=== PATIENT | female | born 1975 | race Hispanic/Latino ===

== ENCOUNTER 2020-08-01 13:30 | Inpatient (IN) | payer BC ==
[~2020-08-01] VITALS: Ht 157.5 cm; Wt 94.9 kg
[2020-08-01] MEDS ORDERED: LABETALOL HCL 5 MG/ML 20ML VIAL IV STA (13:59)
[2020-08-01 14:13] LABS: BASOPHILS # (AUTO) 0.1 (0.0-0.1); BASOPHILS % 0.8 % (0.0-1.0); EOSINOPHILS # (AUTO) 0.6 (0.0-0.4); HEMATOCRIT 42.3 % (34.2-44.1); HEMOGLOBIN 14.3 g/dL (12.0-16.0); LYMPHOCYTES # (AUTO) 2.6 (1.0-3.2); LYMPHOCYTES % 24.1 % (18.0-39.1); MEAN CORPUSCULAR HEMOGLOBIN 30.5 pg (28-32); MEAN CORPUSCULAR HGB CONC 33.8 g/dL (31-35); MEAN CORPUSCULAR VOLUME 90.2 fL (81-99); MONOCYTES # (AUTO) 0.7 (0.2-0.8); MONOCYTES % 6.6 % (4.4-11.3); NEUTROPHILS # (AUTO) 6.9 (2.1-6.9); NEUTROPHILS % 63.1 % (38.7-80.0); PLATELET COUNT 279 x10e3/uL (140-360); RED BLOOD COUNT 4.69 x10e6/uL (3.6-5.1); RED CELL DISTRIBUTION WIDTH 12.9 % (11.7-14.4)
[2020-08-01] MEDS ORDERED: SODIUM CHLORIDE 0.9% 1000ML 1,000 ML ONE (14:18)
[2020-08-01] MEDS ORDERED: MORPHINE SULFATE INJ 4 MG/ML INJ 1ML ONE (14:18)
[2020-08-01] MEDS ORDERED: ONDANSETRON HCL INJ 2MG/ML 2ML 2 MG/ML VIAL ONE (14:18)
[2020-08-01] MEDS ORDERED: SODIUM CHLORIDE 0.9% 1000ML 1,000 ML IV STA (14:26)
[2020-08-01] MEDS ORDERED: ONDANSETRON HCL INJ 2MG/ML 2ML 2 MG/ML VIAL IV STA (14:26)
[2020-08-01] MEDS ORDERED: MORPHINE SULFATE 2 MG/ML SYR 1ML IV STA (14:26)
[2020-08-01 14:27] LABS: INR 0.94
[2020-08-01 14:28] LABS: PARTIAL THROMBOPLASTIN TIME 23.5 seconds (23.8-35.5)
[2020-08-01 14:32] LABS: ALANINE AMINOTRANSFERASE 56 IU/L (0-55); ALKALINE PHOSPHATASE 89 IU/L (40-150); ANION GAP 13.5 mmol/L (8-16); BLOOD UREA NITROGEN 12 mg/dL (7-26); BUN/CREATININE RATIO 15 (6-25); CALCIUM 9.1 mg/dL (8.4-10.2); CARBON DIOXIDE 26 mmol/L (22-29); CHLORIDE 103 mmol/L (98-107); CREATINE KINASE 72 IU/L (29-168); CREATININE, SERUM 0.79 mg/dL (0.57-1.11); EST GLOMERULAR FILTRATION RATE > 60 ML/MIN (60-); GLUCOSE 158 mg/dL (74-118); POTASSIUM 3.5 mmol/L (3.5-5.1); SODIUM 139 mmol/L (136-145)
[2020-08-01 14:33] LABS: AMYLASE 52 U/L (25-125); LIPASE 20 U/L (8-78)
[2020-08-01 15:24] LABS: AMPHETAMINES SCREEN,URINE NEGATIVE (NEGATIVE); BENZODIAZEPINES SCREEN,URINE NEGATIVE (NEGATIVE); PHENCYCLIDINE SCREEN,URINE NEGATIVE (NEGATIVE)
[2020-08-01] MEDS ORDERED: SODIUM CHLORIDE 0.9% 50ML 50 ML ONE (15:25)
[2020-08-01] MEDS ORDERED: IOPAMIDOL 370 MG/ML 200 ML INFUS..BTL INJ ONE (15:26)
[2020-08-01] MEDS: PIPER-TAZ 3.375 GM 50 ML IV SCH ×2 (16:28→17:43)
[2020-08-01] MEDS ORDERED: MORPHINE SULFATE 2 MG/ML SYR 1ML IV PRN (16:45)
[2020-08-01] MEDS ORDERED: MORPHINE SULFATE INJ 4 MG/ML INJ 1ML IV PRN (17:00)
[2020-08-01 17:41] VITALS: BP 154/93
[2020-08-01] MEDS: D5.45%NS/KCL 20MEQ 1,000 ML IV SCH (17:46)
[2020-08-01 18:07] VITALS: BP 154/93
[2020-08-01] MEDS ORDERED: HYDRALAZINE HCL 20 MG/ML VIAL IV PRN (18:15)
[2020-08-01] MEDS ORDERED: POLYETHYLENE GLYCOL 3350 17 GM PACK PO PRN (18:15)
[2020-08-01 20:00] VITALS: BP 153/96
[2020-08-01 20:31] LABS: CREATINE KINASE MB 0.8 ng/mL (0-5.0)
[2020-08-01 21:00] VITALS: BP 153/96
[2020-08-01] MEDS ORDERED: TEMAZEPAM 15 MG CAP PO PRN (21:00)
[2020-08-01] MEDS: DICYCLOMINE HCL 10 MG CAP PO SCH (21:27)
[2020-08-01] MEDS: MORPHINE SULFATE 2 MG/ML SYR 1ML IV PRN (21:29)
[2020-08-01] MEDS ORDERED: ADVIL200 M1 PO (21:47)
[2020-08-02] VITALS (7 sets, daily range): BP systolic 116–143; BP diastolic 77–92
[2020-08-02] MEDS: PIPER-TAZ 3.375 GM 50 ML IV SCH ×5 (00:28→23:53)
[2020-08-02] MEDS: D5.45%NS/KCL 20MEQ 1,000 ML IV SCH ×2 (00:28→08:39)
[2020-08-02] MEDS: MORPHINE SULFATE 2 MG/ML SYR 1ML IV PRN ×4 (02:22→19:59)
[2020-08-02 06:09] LABS: BASOPHILS # (AUTO) 0.1 (0.0-0.1); EOSINOPHILS # (AUTO) 0.6 (0.0-0.4); HEMOGLOBIN 12.6 g/dL (12.0-16.0); LYMPHOCYTES # (AUTO) 2.5 (1.0-3.2); LYMPHOCYTES % 30.8 % (18.0-39.1); MEAN CORPUSCULAR HEMOGLOBIN 30.5 pg (28-32); MEAN CORPUSCULAR HGB CONC 33.2 g/dL (31-35); MONOCYTES # (AUTO) 0.7 (0.2-0.8); MONOCYTES % 8.5 % (4.4-11.3); NEUTROPHILS # (AUTO) 4.3 (2.1-6.9); NEUTROPHILS % 52.3 % (38.7-80.0); PLATELET COUNT 234 x10e3/uL (140-360); RED BLOOD COUNT 4.13 x10e6/uL (3.6-5.1)
[2020-08-02 06:43] LABS: ALANINE AMINOTRANSFERASE 49 IU/L (0-55); ALBUMIN 3.3 g/dL (3.5-5.0); ALBUMIN/GLOBULIN RATIO 0.9 (0.8-2.0); ALKALINE PHOSPHATASE 73 IU/L (40-150); ANION GAP 10.8 mmol/L (8-16); BLOOD UREA NITROGEN 7 mg/dL (7-26); BUN/CREATININE RATIO 9 (6-25); CALCIUM 8.1 mg/dL (8.4-10.2); CARBON DIOXIDE 26 mmol/L (22-29); CHLORIDE 104 mmol/L (98-107); CREATINE KINASE 51 IU/L (29-168); CREATININE, SERUM 0.76 mg/dL (0.57-1.11); EST GLOMERULAR FILTRATION RATE > 60 ML/MIN (60-); GLUCOSE 151 mg/dL (74-118); POTASSIUM 3.8 mmol/L (3.5-5.1); SODIUM 137 mmol/L (136-145)
[2020-08-02 07:15] LABS: CHOL/HDL RATIO 3.4 (3.0-3.6); MAGNESIUM 1.9 MG/DL (1.3-2.1); PHOSPHORUS 3.5 MG/DL (2.3-4.7)
[2020-08-02 07:35] LABS: THYROID STIMULATING HORMONE 2.841 uIU/mL (0.350-4.940)
[2020-08-02] MEDS: DICYCLOMINE HCL 10 MG CAP PO SCH ×3 (08:33→22:46)
[2020-08-02] MEDS: DOCUSATE SODIUM 100 MG CAP PO SCH ×2 (08:33→17:22)
[2020-08-02] MEDS ORDERED: PANTOPRAZOLE 40 MG 10ML VIAL IV SCH (09:00)
[2020-08-02] MEDS: ONDANSETRON HCL INJ 2MG/ML 2ML 2 MG/ML VIAL IV PRN ×2 (11:11→22:46)
[2020-08-02 13:53] LABS: BILIRUBIN,URINE NEGATIVE (NEGATIVE); CLARITY,URINE CLEAR (CLEAR); COLOR,URINE YELLOW (YELLOW); EPITHELIAL CELLS,URINE RARE /LPF; KETONES,URINE NEGATIVE (NEGATIVE); LEUKOCYTE ESTERASE ,URINE NEGATIVE (NEGATIVE); NITRITE,URINE NEGATIVE (NEGATIVE); PROTEIN,URINE DIPSTICK NEGATIVE (NEGATIVE); RBC,URINE 0-5 /HPF (0-5); URINE UROBILINOGEN 0.2 mg/dL (0.2 - 1); WBC,URINE (MAN) 0-5 /HPF (0-5)
[2020-08-02] MEDS: ACETAMINOPHEN 325 MG TAB PO PRN ×2 (17:26→22:52)
[2020-08-02] MEDS ORDERED: ACETAMIN/BUTALBITAL/CAFFEINE TAB PO PRN (17:45)
[2020-08-03] VITALS (8 sets, daily range): BP systolic 108–131; BP diastolic 65–89
[2020-08-03] MEDS: PANTOPRAZOLE 40 MG 10ML VIAL IV SCH ×2 (02:09→13:56)
[2020-08-03] MEDS: MORPHINE SULFATE 2 MG/ML SYR 1ML IV PRN ×3 (02:36→15:37)
[2020-08-03 05:26] LABS: BASOPHILS # (AUTO) 0.1 (0.0-0.1); BASOPHILS % 1.2 % (0.0-1.0); EOSINOPHILS # (AUTO) 0.7 (0.0-0.4); EOSINOPHILS % 12.3 % (0.0-6.0); HEMATOCRIT 40.8 % (34.2-44.1); HEMOGLOBIN 13.6 g/dL (12.0-16.0); LYMPHOCYTES # (AUTO) 2.2 (1.0-3.2); LYMPHOCYTES % 38.2 % (18.0-39.1); MEAN CORPUSCULAR HEMOGLOBIN 30.9 pg (28-32); MEAN CORPUSCULAR HGB CONC 33.3 g/dL (31-35); MEAN CORPUSCULAR VOLUME 92.7 fL (81-99); MONOCYTES # (AUTO) 0.6 (0.2-0.8); MONOCYTES % 9.6 % (4.4-11.3); NEUTROPHILS # (AUTO) 2.2 (2.1-6.9); NEUTROPHILS % 38.2 % (38.7-80.0); PLATELET COUNT 237 x10e3/uL (140-360); RED CELL DISTRIBUTION WIDTH 12.6 % (11.7-14.4)
[2020-08-03 05:56] LABS: BLOOD UREA NITROGEN 7 mg/dL (7-26); BUN/CREATININE RATIO 9 (6-25); CALCIUM 8.5 mg/dL (8.4-10.2); CARBON DIOXIDE 27 mmol/L (22-29); CHLORIDE 103 mmol/L (98-107); CREATININE, SERUM 0.78 mg/dL (0.57-1.11); EST GLOMERULAR FILTRATION RATE > 60 ML/MIN (60-); GLUCOSE 123 mg/dL (74-118); SODIUM 138 mmol/L (136-145)
[2020-08-03] MEDS: PIPER-TAZ 3.375 GM 50 ML IV SCH ×3 (06:20→18:07)
[2020-08-03] MEDS: DICYCLOMINE HCL 10 MG CAP PO SCH ×3 (09:11→21:29)
[2020-08-03] MEDS: DOCUSATE SODIUM 100 MG CAP PO SCH ×2 (09:11→16:51)
[2020-08-03] MEDS: ONDANSETRON HCL INJ 2MG/ML 2ML 2 MG/ML VIAL IV PRN ×2 (09:12→15:38)
[2020-08-03] MEDS ORDERED: IBUPROFEN 400 MG PO PRN (11:15)
[2020-08-03] MEDS ORDERED: IBUPROFEN 400 MG TAB PO PRN ×2 (11:30)
[2020-08-03] MEDS: METRONIDAZOLE 500MG/NS 100ML 100 ML IV SCH ×3 (15:38→21:29)
[2020-08-03] MEDS: ACETAMINOPHEN 325 MG TAB PO PRN (22:26)
[2020-08-03] MEDS ORDERED: SODIUM CHLORIDE 0.9% 250ML 250 ML ONE (23:52)
[2020-08-04] VITALS: BP 114/75
[2020-08-04] MEDS: PIPER-TAZ 3.375 GM 50 ML IV SCH ×4 (00:16→18:01)
[2020-08-04] MEDS: MORPHINE SULFATE 2 MG/ML SYR 1ML IV PRN ×2 (00:36→09:30)
[2020-08-04] MEDS: PANTOPRAZOLE 40 MG 10ML VIAL IV SCH ×2 (01:29→13:35)
[2020-08-04] MEDS: METRONIDAZOLE 500MG/NS 100ML 100 ML IV SCH ×5 (01:29→17:23)
[2020-08-04 04:00] VITALS: BP 127/78
[2020-08-04 04:58] LABS: BASOPHILS # (AUTO) 0.1 (0.0-0.1); EOSINOPHILS # (AUTO) 0.7 (0.0-0.4); EOSINOPHILS % 12.1 % (0.0-6.0); HEMATOCRIT 40.6 % (34.2-44.1); HEMOGLOBIN 13.6 g/dL (12.0-16.0); LYMPHOCYTES # (AUTO) 2.4 (1.0-3.2); LYMPHOCYTES % 40.6 % (18.0-39.1); MEAN CORPUSCULAR HEMOGLOBIN 31.3 pg (28-32); MEAN CORPUSCULAR HGB CONC 33.5 g/dL (31-35); MEAN CORPUSCULAR VOLUME 93.3 fL (81-99); MONOCYTES # (AUTO) 0.6 (0.2-0.8); MONOCYTES % 9.2 % (4.4-11.3); NEUTROPHILS # (AUTO) 2.2 (2.1-6.9); NEUTROPHILS % 36.9 % (38.7-80.0); PLATELET COUNT 241 x10e3/uL (140-360); RED BLOOD COUNT 4.35 x10e6/uL (3.6-5.1); RED CELL DISTRIBUTION WIDTH 12.4 % (11.7-14.4)
[2020-08-04 05:21] LABS: ANION GAP 11.1 mmol/L (8-16); BLOOD UREA NITROGEN 8 mg/dL (7-26); BUN/CREATININE RATIO 8 (6-25); CALCIUM 8.6 mg/dL (8.4-10.2); CARBON DIOXIDE 28 mmol/L (22-29); CHLORIDE 102 mmol/L (98-107); CREATININE, SERUM 0.96 mg/dL (0.57-1.11); EST GLOMERULAR FILTRATION RATE > 60 ML/MIN (60-); GLUCOSE 109 mg/dL (74-118); MAGNESIUM 1.9 MG/DL (1.3-2.1); PHOSPHORUS 4.4 MG/DL (2.3-4.7); POTASSIUM 4.1 mmol/L (3.5-5.1); SODIUM 137 mmol/L (136-145)
[2020-08-04 08:31] VITALS: BP 131/73
[2020-08-04 08:43] VITALS: BP 131/73
[2020-08-04] MEDS: DOCUSATE SODIUM 100 MG CAP PO SCH ×2 (09:10→16:42)
[2020-08-04] MEDS: DICYCLOMINE HCL 10 MG CAP PO SCH ×2 (09:10→14:48)
[2020-08-04 12:16] VITALS: BP 133/85
[2020-08-04] MEDS ORDERED: HYDROCODONE/APAP 5MG-325MG TAB PO PRN (16:00)
[2020-08-04] MEDS ORDERED: TRAMADOL HCL 50 MG TAB PO PRN (16:00)
[2020-08-04] MEDS ORDERED: ONDANSETRON HCL 4 MG ORAL DISINTEGRATING TAB PO PRN (16:00)
[2020-08-04 16:30] VITALS: BP 125/86
[2020-08-04] MEDS ORDERED: ACETAMINOPHEN325 M1 PO (17:05)
[2020-08-04] MEDS ORDERED: ULTRAM 50MG50 MG PO (17:05)
[2020-08-04] MEDS ORDERED: DICYCLOMINE HCL10 MG PO (17:05)
== END 2020-08-04 18:25 | disposition home or self-care (01) | DRG 392 ==
LOC: ER 13:48 → ERHOLD 16:23 → UNDOADMIN 16:23 → ERHOLD 16:48 → MED/SURG 17:33
PROVIDERS: ADMIT Internal Medicine; ATTEND Internal Medicine
DX: K57.30 Diverticulosis of large intestine without perforation or abscess without bleeding (principal); I16.9 Hypertensive crisis, unspecified; N39.0 Urinary tract infection, site not specified; K76.0 Fatty (change of) liver, not elsewhere classified; E87.6 Hypokalemia; E66.9 Obesity, unspecified; Z68.32 Body mass index [BMI] 32.0-32.9, adult; Z20.828 Contact with and (suspected) exposure to other viral communicable diseases
CPT/HCPCS: 36415; 71045; 74177; 80048; 80053; 80061; 80307; 81001; 82150; 82550; 82553; 83036; 83690; 83735; 83880; 84100; 84443; 84484; 84702; 85025; 85379; 85610; 85730; 87086; 93005; 99284; J2270; J2405; J2543; J7030; J7050; Q9967; U0002

== ENCOUNTER 2021-12-07 19:46 | Emergency (ER) | payer BC ==
[~2021-12-07] VITALS: Ht 157.5 cm; Wt 86.2 kg
[~2021-12-07 19:46] MED LIST: ACETAMINOPHEN325 M1 PO; ADVIL200 M1 PO; DICYCLOMINE HCL10 MG PO; ULTRAM 50MG50 MG PO
[2021-12-07] MEDS ORDERED: LACTATED RINGER'S 1,000 ML INJ STA (20:06)
[2021-12-07] MEDS ORDERED: ACETAMINOPHEN 325 MG TAB PO ONE (20:15)
[2021-12-07 20:37] LABS: BASOPHILS % 0.7 % (0.0-1.0); EOSINOPHILS # (AUTO) 0.1 (0.0-0.4); EOSINOPHILS % 1.4 % (0.0-6.0); HEMATOCRIT 39.6 % (34.2-44.1); HEMOGLOBIN 13.8 g/dL (12.0-16.0); LYMPHOCYTES # (AUTO) 0.8 (1.0-3.2); LYMPHOCYTES % 17.1 % (18.0-39.1); MEAN CORPUSCULAR HEMOGLOBIN 30.9 pg (28-32); MEAN CORPUSCULAR HGB CONC 34.8 g/dL (31-35); MEAN CORPUSCULAR VOLUME 88.8 fL (81-99); MONOCYTES # (AUTO) 0.1 (0.2-0.8); NEUTROPHILS # (AUTO) 3.4 (2.1-6.9); NEUTROPHILS % 77.6 % (38.7-80.0); PLATELET COUNT 266 x10e3/uL (140-360); RED BLOOD COUNT 4.46 x10e6/uL (3.6-5.1); RED CELL DISTRIBUTION WIDTH 12.1 % (11.7-14.4)
[2021-12-07 20:42] LABS: INR 0.93; PROTHROMBIN TIME 13.3 seconds (11.9-14.5)
[2021-12-07 20:51] LABS: ALBUMIN/GLOBULIN RATIO 1.1 (0.8-2.0); ANION GAP 10.4 mmol/L (8-16); CALCIUM 8.2 mg/dL (8.4-10.2); CREATININE, SERUM 0.74 mg/dL (0.57-1.11); POTASSIUM 3.4 mmol/L (3.5-5.1)
[2021-12-07 20:57] LABS: CLARITY,URINE CLEAR (CLEAR); COLOR,URINE YELLOW (YELLOW); KETONES,URINE NEGATIVE (NEGATIVE); LEUKOCYTE ESTERASE ,URINE NEGATIVE (NEGATIVE); NITRITE,URINE NEGATIVE (NEGATIVE); PROTEIN,URINE DIPSTICK NEGATIVE (NEGATIVE); URINE UROBILINOGEN 0.2 mg/dL (0.2 - 1)
[2021-12-07 21:04] LABS: BACTERIA,URINE FEW /HPF; EPITHELIAL CELLS,URINE FEW /LPF; WBC,URINE (MAN) 0-5 /HPF (0-5)
[2021-12-07 21:05] LABS: RENAL EPITHELIAL CELLS,URINE FEW
[2021-12-07] MEDS ORDERED: KETOROLAC TROMETHAMINE 30 MG/ML VIAL IV STA (23:02)
[2021-12-07] MEDS ORDERED: SODIUM CHLORIDE 0.9% 1000ML 1,000 ML IV STA (23:02)
[2021-12-07] MEDS ORDERED: METOCLOPRAMIDE HCL 10 MG/2ML VIAL IV ONE (23:15)
[2021-12-08] MEDS ORDERED: ONDANSETRON ODT4 MG PO (01:17)
[2021-12-08 02:09] VITALS: BP 132/86
== END 2021-12-08 02:11 | disposition home or self-care (01) ==
LOC: ER 20:26
DX: R50.9 Fever, unspecified (principal); E86.9 Volume depletion, unspecified; R11.2 Nausea with vomiting, unspecified; R73.9 Hyperglycemia, unspecified; Z20.822 Contact with and (suspected) exposure to COVID-19; Z85.3 Personal history of malignant neoplasm of breast
CPT/HCPCS: 36415; 71045; 80053; 81001; 83605; 85025; 85610; 99283; J1885; J2765; J7030; J7121; U0002

== ENCOUNTER 2023-02-07 14:50 | Emergency (ER) | payer BC ==
[~2023-02-07] VITALS: Ht 157.5 cm; Wt 87.1 kg
[~2023-02-07 14:50] MED LIST changes: +ONDANSETRON ODT4 MG PO
[2023-02-07] MEDS ORDERED: IBUPROFEN 600 MG TAB PO STA (15:53)
[2023-02-07] MEDS ORDERED: SODIUM CHLORIDE 0.9% 1000ML 1,000 ML IV ONE (16:00)
[2023-02-07] MEDS ORDERED: IBUPROFEN 600 MG TAB ONE (16:25)
[2023-02-07] MEDS ORDERED: SODIUM CHLORIDE 0.9% 1000ML 1,000 ML ONE (16:25)
[2023-02-07 16:55] LABS: BASOPHILS # (AUTO) 0.1 (0.0-0.1); BASOPHILS % 0.5 % (0.0-1.0); EOSINOPHILS # (AUTO) 0.6 (0.0-0.4); EOSINOPHILS % 4.9 % (0.0-6.0); HEMATOCRIT 41.3 % (34.2-44.1); LYMPHOCYTES # (AUTO) 3.1 (1.0-3.2); LYMPHOCYTES % 26.8 % (18.0-39.1); MEAN CORPUSCULAR HEMOGLOBIN 29.9 pg (28-32); MEAN CORPUSCULAR HGB CONC 33.9 g/dL (31-35); MEAN CORPUSCULAR VOLUME 88.2 fL (81-99); MONOCYTES # (AUTO) 0.8 (0.2-0.8); MONOCYTES % 6.7 % (4.4-11.3); NEUTROPHILS # (AUTO) 6.9 (2.1-6.9); NEUTROPHILS % 60.8 % (38.7-80.0); PLATELET COUNT 304 x10e3/uL (140-360); RED BLOOD COUNT 4.68 x10e6/uL (3.6-5.1); RED CELL DISTRIBUTION WIDTH 13.2 % (11.7-14.4)
[2023-02-07 16:58] LABS: INR 1.01; PROTHROMBIN TIME 13.8 seconds (11.9-14.5)
[2023-02-07 16:59] LABS: PARTIAL THROMBOPLASTIN TIME 24.7 seconds (23.8-35.5)
[2023-02-07 17:13] LABS: ALBUMIN 4.1 g/dL (3.5-5.0); ALBUMIN/GLOBULIN RATIO 0.9 (0.8-2.0); ANION GAP 13.6 mmol/L (8-16); CALCIUM 9.3 mg/dL (8.4-10.2); CREATININE, SERUM 0.74 mg/dL (0.57-1.11); POTASSIUM 3.6 mmol/L (3.5-5.1)
[2023-02-07 17:25] LABS: CLARITY,URINE CLEAR (CLEAR); COLOR,URINE YELLOW (YELLOW); KETONES,URINE NEGATIVE (NEGATIVE); LEUKOCYTE ESTERASE ,URINE NEGATIVE (NEGATIVE); NITRITE,URINE NEGATIVE (NEGATIVE); PROTEIN,URINE DIPSTICK NEGATIVE (NEGATIVE); URINE UROBILINOGEN 1 mg/dL (0.2 - 1)
[2023-02-07 17:32] LABS: BACTERIA,URINE MODERATE /HPF; EPITHELIAL CELLS,URINE FEW /LPF
[2023-02-07] MEDS ORDERED: Vancomycin IV 1 GM VIAL ONE (17:53)
[2023-02-07] MEDS ORDERED: SODIUM CHLORIDE 0.9% 250ML 250 ML ONE (17:53)
[2023-02-07] MEDS ORDERED: CEFEPIME HCL 1 GM VIAL ONE (17:54)
[2023-02-07] MEDS ORDERED: Vancomycin IV 1 GM in SODIUM CHLORIDE 0.9% 250ML 250 ML IV SCH (18:00)
[2023-02-07] MEDS ORDERED: IBUPROFEN600 MG PO (18:49)
[2023-02-07 20:27] VITALS: BP 141/103; PULSE 98; RESP 18; TEMP 99; O2SAT 100
== END 2023-02-07 20:20 | disposition home or self-care (01) ==
LOC: ER 15:22
DX: R50.9 Fever, unspecified (principal); R10.31 Right lower quadrant pain; I10 Essential (primary) hypertension; Z20.822 Contact with and (suspected) exposure to COVID-19; Z85.3 Personal history of malignant neoplasm of breast
CPT/HCPCS: 36415; 71045; 80053; 81001; 81025; 83605; 84132; 84484; 85025; 85610; 85730; 87040; 87086; 87400; 93005; 99284; J0692; J3370; J7030; J7050; U0002